=== PATIENT | male | born 1995 | race Caucasian/White ===

== ENCOUNTER 2020-02-27 07:00 | Day surgery (SDC) | payer BC, OTHER ==
[2020-02-27] MEDS ORDERED: PROPOFOL INJ 200 MG/20 ML VIAL IV ONE (08:01)
--- NOTE | 2020-02-27 08:23 | Operative Report ---
Operative Report DATE OF SURGERY: 02/27/20 Operative Report: The risk, benefits and alternatives of the procedure including the risk of bleeding, perforation requiring surgery have been explained to the patient in detail and informed consent has been obtained. Patient is placed in a left, lateral decubital position. Timeout was called. Propofol medication is administered. Rectal examination is done which did not reveal any masses, tears or fissures. An Olympus videoscope is inserted into the patient's rectum. Scope was then carefully advanced all the way to the cecum. Cecum was identified by the usual anatomical landmarks including the ileocecal valve as well as the appendiceal office. Photodocumentation is obtained per scope was then sequentially pulled back via the various segments of the colon including the ascending colon, hepatic flexure, transverse colon, splenic flexure, descending colon and finally into the rectosigmoid portions of the colon. Retroflexion maneuver is performed. PREOPERATIVE DIAGNOSIS: Change of bowel habits POSTOPERATIVE DIAGNOSIS: Right colon inflammation status post biopsy OPERATION: Colonoscopy with biopsy SURGEON: JOHN DIEZ ANESTHESIA: LMAC TISSUE REMOVED OR ALTERED: As noted above. COMPLICATIONS: None. ESTIMATED BLOOD LOSS: None. INTRAOPERATIVE FINDINGS: As noted above. PROCEDURE: Patient tolerated the procedure well. No immediate postprocedure complications are noted. Patient is discharged in good condition. Discharge date 02/27/2020. Discharge diet: Regular. Discharge activity: Regular. 2 to 3-week follow-up to discuss findings. Patient is instructed call the office or proceed to the emergency room should there be any further problems or questions. Wait on the pathology.
[2020-02-27] MEDS ORDERED: SIMETHICONE 80 MG TAB.CHEW ONE (08:42)
[2020-02-27 09:01] VITALS: BP 120/61
== END 2020-02-27 09:04 | disposition home or self-care (01) ==
LOC: END 07:00
PROVIDERS: ATTEND Internal Medicine Gastroenterology
DX: K52.9 Noninfective gastroenteritis and colitis, unspecified (principal); I10 Essential (primary) hypertension; Z79.899 Other long term (current) drug therapy; E66.9 Obesity, unspecified; Z03.818 Encounter for observation for suspected exposure to other biological agents ruled out
CPT/HCPCS: 45380; 88305 ×2; 00811; U0003; J2704; C9803; 811; 87635